=== PATIENT | female | born 1990 | race Caucasian/White ===

== ENCOUNTER 2021-12-20 13:10 | Outpatient (CLI) | payer BC, SELFPAY ==
[2021-12-20 10:01] LABS: Chloride* 105 mmol/L (96-114)
[2021-12-20 10:02] LABS: Albumin* 3.9 g/dL (3.3-5.0); Sodium* 137 mmol/L (135-149)
[2021-12-20 10:03] LABS: Potassium* 4.5 mmol/L (3.6-5.1)
[2021-12-20 10:05] LABS: Alanine Aminotransferase* 24 U/L (4-35); Alkaline Phosphatase* 51 U/L (40-150); Aspartate Amino Transferase* 29 U/L (12-35); Bilirubin Total* 0.3 mg/dL (0.1-1.5); Blood Urea Nitrogen* 11 mg/dL (5-24); Carbon Dioxide* 25 mmol/L (20-32); Cholesterol* 153 mg/dL (90-199); Creatinine* 0.6 mg/dL (0.5-1.5); Estimated Glomerular Filt Rate 123 ml/min; Glucose* 94 mg/dL (60-115); Total Protein* 6.5 g/dL (6.0-8.3); Triglycerides* 135 mg/dL (40-149)
[2021-12-20 10:06] LABS: Calcium* 9.1 mg/dL (8.4-10.6); HDL Cholesterol* 49 mg/dL (>=50); LDL Cholesterol Calculated 77 mg/dL (<100)
[2021-12-20 10:19] LABS: Creatinine Urine 196.3 mg/dL
[2021-12-20 10:24] LABS: Microalbumin Creatinine Ratio 0 mg/g (0-30); Microalbumin Urine 1 mg/dL
[2021-12-20 11:35] LABS: Free T4 Free Thyroxine* 0.99 ng/dL (0.70-1.85)
== END 2021-12-20 13:11 | disposition home or self-care (01) ==
PROVIDERS: PCP Family Medicine; Visit Provider Family Medicine
DX: E03.9 Hypothyroidism, unspecified (principal); E66.9 Obesity, unspecified; G47.30 Sleep apnea, unspecified; R03.0 Elevated blood-pressure reading, without diagnosis of hypertension; R53.83 Other fatigue; Z13.6 Encounter for screening for cardiovascular disorders; Z13.1 Encounter for screening for diabetes mellitus
CPT/HCPCS: 80053; 80061; 82043; 82570; 84439; 84443

== ENCOUNTER 2022-03-29 18:10 | Outpatient (CLI) | payer BC, SELFPAY | END 2022-03-29 18:11 | disposition home or self-care (01) | PROVIDERS: PCP Family Medicine; Visit Provider Family Medicine | DX: R53.83 Other fatigue (principal) | CPT/HCPCS: 84443 ==

== ENCOUNTER 2022-10-30 14:47 | Outpatient (CLI) | payer BC, SELFPAY ==
--- NOTE | 2022-10-30 15:00 | CRLHL7_ITS ---
For Patients: As a result of the Century Cures Act, medical imaging exams and procedure reports are released immediately into your electronic medical record. You may view this report before your referring provider. If you have questions, please contact your health care provider. INDICATION: First trimester scan, establish dates. COMPARISON: None. TECHNIQUE: Real-time willett-scale imaging of the pelvis was performed. FINDINGS: Sonographic imaging demonstrates a single living intrauterine gestation. The embryo demonstrates a regular cardiac rate measuring 171 beats per minute. The embryo`s crown-rump length measurement of 2.4 cm corresponds to a gestational age of 9 weeks 1 day with a sonographic due date of 06/03/2023. There is a normal-appearing yolk sac. There are no gross abnormalities noted within the embryo at this early state of development. The gestational sac has a normal appearance. There is no evidence of a perigestational hemorrhage. The amount of fluid within the sac appears appropriate for gestational age. The cervix is closed. The myometrium appears normal. Corpus luteal right ovarian cyst. Left ovary not visualized. There are no suspicious fluid collections noted in the cul-de-sac. IMPRESSION: Normal first trimester OB ultrasound exam. Gestational age calculated at 9 weeks 1 day with a sonographic due date of 06/03/2023. Dictated by Kranthi Enrique MD @ 10/31/2022 1:21:01 PM (Electronically Signed)
== END 2022-10-30 14:48 | disposition home or self-care (01) ==
LOC: US 14:49
PROVIDERS: PCP Family Medicine; Visit Provider Physician Assistant
DX: Z34.91 Encounter for supervision of normal pregnancy, unspecified, first trimester (principal); Z3A.09 9 weeks gestation of pregnancy
CPT/HCPCS: 76817; 84443; 86703; 86803; 86850; 86900; 86901; 87086; 87340; 87491; 87591

== ENCOUNTER 2022-10-30 15:55 | Outpatient (CLI) | payer BC, SELFPAY ==
[2022-10-30 21:59] LABS: Chlamydia DNA Amplified* NOT DETECTED (No Detected); GC DNA Amplified* NOT DETECTED (No Detected)
== END 2022-10-30 15:56 | disposition home or self-care (01) ==
PROVIDERS: PCP Family Medicine; Visit Provider Physician Assistant
DX: Z34.90 Encounter for supervision of normal pregnancy, unspecified, unspecified trimester (principal)
CPT/HCPCS: 84443; 86592; 86703; 86762; 86787; 86803; 86850; 86900; 86901; 87086; 87340; 87491; 87591

== ENCOUNTER 2022-11-27 09:32 | Outpatient (CLI) | payer BC, SELFPAY | END 2022-11-27 09:33 | disposition home or self-care (01) | PROVIDERS: PCP Family Medicine; Visit Provider Obstetrics & Gynecology | DX: Z34.91 Encounter for supervision of normal pregnancy, unspecified, first trimester (principal); Z3A.13 13 weeks gestation of pregnancy | CPT/HCPCS: 82565; 82570; 84156; 84443; 84450; 84460; 84520 ==

== ENCOUNTER 2022-12-26 14:21 | Outpatient (CLI) | payer BC, SELFPAY | END 2022-12-26 14:22 | disposition home or self-care (01) | LOC: NFLDREF 12-28 06:49 | PROVIDERS: PCP Family Medicine; Referring Provider Family Medicine; Visit Provider Obstetrics & Gynecology | DX: O10.912 Unspecified pre-existing hypertension complicating pregnancy, second trimester (principal); G47.30 Sleep apnea, unspecified; Z3A.17 17 weeks gestation of pregnancy | CPT/HCPCS: 84450; 84460 ==

== ENCOUNTER 2023-03-05 12:31 | Outpatient (CLI) | payer BC, SELFPAY | END 2023-03-05 12:32 | disposition home or self-care (01) | LOC: NFLDREF 03-06 07:52 | PROVIDERS: PCP Family Medicine; Referring Provider Family Medicine; Visit Provider Obstetrics & Gynecology | DX: Z34.92 Encounter for supervision of normal pregnancy, unspecified, second trimester (principal); E03.9 Hypothyroidism, unspecified; Z3A.27 27 weeks gestation of pregnancy | CPT/HCPCS: 84443; 86592 ==

== ENCOUNTER 2023-03-28 07:11 | Outpatient (CLI) | payer BC, SELFPAY ==
--- NOTE | 2023-03-28 07:15 | CRLHL7_ITS ---
For Patients: As a result of the Century Cures Act, medical imaging exams and procedure reports are released immediately into your electronic medical record. You may view this report before your referring provider. If you have questions, please contact your health care provider. INDICATION: Chronic hypertension TECHNIQUE: Limited transabdominal two-dimensional willett-scale ultrasound examination. COMPARISON: 02/19/2023 and 01/21/2023 FINDINGS: There is a living fetus with gestational age of 30 weeks 2 days by LMP and 33 weeks 1 day by today`s measurements. EDC based on LMP is 06/04/2023. BPD: 8.3 cm, 33 weeks 4 days Head circumference: 31.0 cm, 34 weeks 4 days Abdominal circumference: 28.5 cm, 32 weeks 4 days Femur length: 6.1 cm, 31 weeks 5 days The weight is estimated at 2009 grams, greater than the 97th percentile. The heart rate is measured at 152 beats per minute and the rhythm appears regular. The amniotic fluid volume is within normal limits with single deepest pocket of 7.1 cm. The placenta is anterior and superior to the cervical os. There is no evidence of previa. IMPRESSION: 1. Living fetus with gestational age of 30 weeks 2 days by LMP and 33 weeks 1 day by today`s measurements. EDC based on LMP is 06/04/2023. 2. weight estimated at 2009 grams, greater than the 97th percentile. Dictated by Ernie Anderson MD @ 03/29/2023 7:27:06 AM (Electronically Signed)
== END 2023-03-28 07:12 | disposition home or self-care (01) ==
LOC: US 07:12
PROVIDERS: PCP Family Medicine; Visit Provider Obstetrics & Gynecology
DX: O10.913 Unspecified pre-existing hypertension complicating pregnancy, third trimester (principal); Z3A.33 33 weeks gestation of pregnancy
CPT/HCPCS: 76816

== ENCOUNTER 2023-04-11 08:02 | Outpatient (CLI) | payer BC, SELFPAY ==
--- NOTE | 2023-04-11 08:15 | CRLHL7_ITS ---
For Patients: As a result of the Century Cures Act, medical imaging exams and procedure reports are released immediately into your electronic medical record. You may view this report before your referring provider. If you have questions, please contact your health care provider. INDICATION: Chronic HTN COMPARISON: 03/28/2023 TECHNIQUE: Real time willett scale imaging of the fetus was performed. Without non-stress testing. FINDINGS: Sonographic imaging demonstrates a single living intrauterine gestation. Fetus demonstrates a regular cardiac rate of 149 beats per minute. Fetus has a vertex position. The amniotic fluid volume appears normal and there is a single deepest pocket measurement of 7.3 cm. The fetus was active and demonstrated normal breathing movements. There was normal flexion and extension of the trunk and extremities. IMPRESSION: Normal biophysical profile score of 8 out of 8. Dictated by Kranthi Enrique MD @ 04/11/2023 9:26:53 AM (Electronically Signed)
== END 2023-04-11 08:03 | disposition home or self-care (01) ==
LOC: US 08:03
PROVIDERS: PCP Family Medicine; Visit Provider Obstetrics & Gynecology
DX: O10.919 Unspecified pre-existing hypertension complicating pregnancy, unspecified trimester (principal)
CPT/HCPCS: 76819; 84443

== ENCOUNTER 2023-04-18 12:50 | Outpatient (CLI) | payer BC, SELFPAY ==
--- NOTE | 2023-04-18 13:00 | CRLHL7_ITS ---
For Patients: As a result of the Century Cures Act, medical imaging exams and procedure reports are released immediately into your electronic medical record. You may view this report before your referring provider. If you have questions, please contact your health care provider. INDICATION: Chronic HTN COMPARISON: 04/11/2023 TECHNIQUE: Real time willett scale imaging of the fetus was performed. Without non-stress testing. FINDINGS: Sonographic imaging demonstrates a single living intrauterine gestation. Fetus demonstrates a regular cardiac rate of 126 beats per minute. Fetus has a vertex position. The amniotic fluid volume appears normal and there is a single deepest pocket measurement of 9.2 cm. NANDA 20.9 cm. The fetus was active and demonstrated normal breathing movements. There was normal flexion and extension of the trunk and extremities. IMPRESSION: Normal biophysical profile score of 8 out of 8. Dictated by Kranthi Enrique MD @ 04/18/2023 3:10:58 PM (Electronically Signed)
== END 2023-04-18 12:51 | disposition home or self-care (01) ==
LOC: US 12:50
PROVIDERS: PCP Family Medicine; Visit Provider Obstetrics & Gynecology
DX: O10.919 Unspecified pre-existing hypertension complicating pregnancy, unspecified trimester (principal)
CPT/HCPCS: 76819

== ENCOUNTER 2023-04-25 12:50 | Outpatient (CLI) | payer BC, SELFPAY ==
--- NOTE | 2023-04-25 13:00 | CRLHL7_ITS ---
For Patients: As a result of the Century Cures Act, medical imaging exams and procedure reports are released immediately into your electronic medical record. You may view this report before your referring provider. If you have questions, please contact your health care provider. INDICATION: Hypertension COMPARISON: 04/18/2023 TECHNIQUE: Real time willett scale imaging of the fetus was performed. Without non-stress testing. FINDINGS: Sonographic imaging demonstrates a single living intrauterine gestation. Fetus demonstrates a regular cardiac rate of 135 beats per minute. Fetus has a vertex position. The amniotic fluid volume appears normal and there is a single deepest pocket measurement of 6.8 cm. The fetus was active and demonstrated normal breathing movements. There was normal flexion and extension of the trunk and extremities. IMPRESSION: Normal biophysical profile score of 8 out of 8. Dictated by Kranthi Enrique MD @ 04/25/2023 1:52:42 PM (Electronically Signed)
== END 2023-04-25 12:51 | disposition home or self-care (01) ==
LOC: US 12:50
PROVIDERS: PCP Family Medicine; Visit Provider Obstetrics & Gynecology
DX: O10.919 Unspecified pre-existing hypertension complicating pregnancy, unspecified trimester (principal)
CPT/HCPCS: 76819; 82565; 82570; 84156; 84450; 84460; 84520

== ENCOUNTER 2023-05-02 12:50 | Outpatient (CLI) | payer BC, SELFPAY ==
--- NOTE | 2023-05-02 13:00 | US_ITS ---
Patient: KAYE JARRETT Facility:?[facility] Patient ID:?[id number] :?1990 Study:?US-OB Pelvis -05/02/2023 1:34:24 PM Ordering Physician:?Aparna Gonzales Final Report: INDICATION: Chronic hypertension TECHNIQUE: Real time willett scale imaging of the fetus was performed. COMPARISON: 04/25/2023 FINDINGS: Sonographic imaging demonstrates a single living intrauterine gestation. Fetus demonstrates a regular cardiac rate of 141 beats per minute. Fetus has a vertex position. The placenta lies anteriorly. Amniotic fluid volume appears normal and there is a single deepest pocket of 4.4 cm. The estimated weight is 3220gm which lies at the 95th %. On the prior OB ultrasound dated 03/28/2023 the estimated weight was at the greater than 97th percentile. BPD greater than 97th percentile. HC 94th percentile. AC 97th percentile. FL 78th percentile. The fetus was active and demonstrated normal breathing movements. There was normal flexion and extension of the trunk and extremities. IMPRESSION: Normal biophysical profile score 8/8. Sonographic gestational age 37 weeks 5 days and sonographic due date 05/18/2023. Sonographic ages 17 days ahead of the clinical age. Estimated weight 95th percentile. Abdominal circumference 97th percentile. Dictated by Kranthi Enrique MD @ 05/02/2023 1:39:20 PM Signed by:?Kranthi Enrique MD @05/02/2023 1:39:20 PM (Electronic Signature)
== END 2023-05-02 12:51 | disposition home or self-care (01) ==
LOC: US 12:50
PROVIDERS: PCP Family Medicine; Visit Provider Obstetrics & Gynecology
DX: O10.913 Unspecified pre-existing hypertension complicating pregnancy, third trimester (principal); Z3A.37 37 weeks gestation of pregnancy
CPT/HCPCS: 76816; 76819

== ENCOUNTER 2023-05-08 12:58 | Outpatient (CLI) | payer BC, SELFPAY ==
[2023-05-08] VITALS (11 sets, daily range): BP systolic 118–125; BP diastolic 57–66; PULSE 72–85; O2SAT 96–98
[2023-05-08 13:26] LABS: Hematocrit 34.6 % (33.0-51.0); Hemoglobin* 11.6 gm/dL (12.0-16.0); Mean Corpuscular HGB Conc 34 gm/dL (32-36); Mean Corpuscular Hemoglobin 29 pg (26-34); Mean Corpuscular Volume 86 fL (80-100); Platelet Count* 223 K/uL (140-440); Red Blood Count 4.04 m/uL (4.00-5.20); White Blood Count* 7.54 K/uL (4.50-11.00)
[2023-05-08 13:33] LABS: Slide Review Reflex No
[2023-05-08 13:52] LABS: Total Protein Urine < 5 mg/dL
[2023-05-08 14:10] LABS: Creatinine* 0.4 mg/dL (0.5-1.5); Estimated Glomerular Filt Rate 135 ml/min
[2023-05-08 14:11] LABS: Alanine Aminotransferase* 13 U/L (4-35); Aspartate Amino Transferase* 22 U/L (12-35); Blood Urea Nitrogen* 8 mg/dL (5-24)
[2023-05-08] MEDS: hydrOXYzine pamoate 25 MG CAPSULE 50 MG PO (15:24)
--- NOTE | 2023-05-08 15:42 | PC.OBNST ---
NST Note NST Note Start: 05/08/23 12:58 Freq: ONCE Status: Active Protocol: Document 05/08/23 15:39 [facility] (Rec: 05/08/23 15:41 [facility] [id number]) NST Note 1 Para (# of births) 0 EDC 06/04/23 Gestational Age In Weeks & Days 36 Weeks & 1 Days High Risk Factors High Blood Pressure - Preexisting Patient Presented with Complaint(s) of Other Other Complaints Increased swelling in bilateral hands and bilateral lower extremities Reactive Yes Appropriate for Gestational Age Yes RN Rigoberto Durant RN Date 05/08/23 Reactive Yes Appropriate for Gestational Age Yes PRUDENCE Shine Date 05/08/23 OB NST charge Yes Complete NST Note via Write Note Yes The provider's electronic signature indicates the NST is reactive/appropriate for gestational age. *Note to provider: If an addendum is required, open the patient's chart and click on the note under the Nurse/Allied Health tab.
--- NOTE | 2023-05-19 15:32 | PC.OBNST ---
NST Note NST Note Start: 05/08/23 12:58 Freq: ONCE Status: Discharge Protocol: Document 05/08/23 15:39 [facility] (Rec: 05/08/23 15:41 [facility] [id number]) NST Note 1 Para (# of births) 0 EDC 06/04/23 Gestational Age In Weeks & Days 36 Weeks & 1 Days High Risk Factors High Blood Pressure - Preexisting Patient Presented with Complaint(s) of Other Other Complaints Increased swelling in bilateral hands and bilateral lower extremities Reactive Yes Appropriate for Gestational Age Yes RN Rigoberto Durant RN Date 05/08/23 Reactive Yes Appropriate for Gestational Age Yes PRUDENCE Shine Date 05/08/23 OB NST charge Yes Complete NST Note via Write Note Yes The provider's electronic signature indicates the NST is reactive/appropriate for gestational age. *Note to provider: If an addendum is required, open the patient's chart and click on the note under the Nurse/Allied Health tab.
== END 2023-05-08 15:30 | disposition home or self-care (01) ==
LOC: OB OUT 12:58 → OB 12:59
PROVIDERS: PCP Family Medicine; Visit Provider Obstetrics & Gynecology
DX: O10.913 Unspecified pre-existing hypertension complicating pregnancy, third trimester (principal); Z3A.36 36 weeks gestation of pregnancy
CPT/HCPCS: 36415; 59025; 82565; 82570; 84156; 84450; 84460; 84520; 85027; G0463; A9270

== ENCOUNTER 2023-05-10 10:11 | Outpatient (CLI) | payer BC, SELFPAY ==
--- NOTE | 2023-05-10 10:15 | US_ITS ---
Patient: KAYE JARRETT Facility:?[facility] R[facility] Patient ID:?[id number] Site Patient ID:?[id number]. Site :?1990 Study:?US-OB Pelvis -05/10/2023 10:40:10 AM Ordering Physician:MARCOS PARKER Final Report: INDICATION: PREEXISTING HTN COMPARISON: 05/02/2023 TECHNIQUE: Real time willett scale imaging of the fetus was performed. Without non-stress testing. FINDINGS: Sonographic imaging demonstrates a single living intrauterine gestation. Fetus demonstrates a regular cardiac rate of 154 beats per minute. Fetus has a vertex position. The amniotic fluid volume appears normal and there is a single deepest pocket measurement of 7.7 cm. The fetus was active and demonstrated normal breathing movements. There was normal flexion and extension of the trunk and extremities. IMPRESSION: Normal biophysical profile score of 8 out of 8. Dictated by Kranthi Enrique MD @ 05/10/2023 10:53:39 AM Signed by:?Kranthi Enrique MD @05/10/2023 10:53:39 AM (Electronic Signature)
== END 2023-05-10 10:12 | disposition home or self-care (01) ==
PROVIDERS: PCP Family Medicine; Visit Provider Obstetrics & Gynecology
DX: O10.913 Unspecified pre-existing hypertension complicating pregnancy, third trimester (principal); Z3A.36 36 weeks gestation of pregnancy
CPT/HCPCS: 76819; 87081; 87653

== ENCOUNTER 2023-05-20 14:47 | Inpatient (IN) | payer BC, SELFPAY ==
[2023-05-20 14:56] VITALS: BP 137/73; PULSE 82; RESP 16; TEMP 36.9
[2023-05-20 15:06] VITALS: BMI 40.8
[2023-05-20 20:01] VITALS: BP 140/69; PULSE 74
--- NOTE | 2023-05-20 20:31 | P.OBHP_ITS ---
OB - H&P: HPI Labor/Induction History of Present Illness Time Seen by Provider: 17:00 Date Seen: 05/20/23 Chief Complaint: The patient is a 32 year old 1 para 0 at 37.6 weeks gestation by LMP, who presents for induction of labor due to chronic hypertension and severe PUPPS. Her full history was dictated by Dr. Gonzales on 05/15/23. See for full details. No interval changes since she was last seen in clinic. Active movement. Denies Ctx, LOF, vaginal bleeding or abnormal vaginal discharge. Denies any persistent headache, vision changes, SOB, right upper quadrant/epigastric pain, or rapidly expanding edema. Chief complaint: IOL for Chronic HTN and severe PUPPS Narrative: Patricia Melissa is a 32 year old female Specific Issues/Plans Spouse: Avel. Baby: Julius Hoover H&P done 05/15/[address] Gonzales. 1. Obesity, BMI 34.6 * Hemoglobin A1c: 5.1%, passed 1 hour glucola * ASA 81 MG 2. Hypothyroidism, levothyroxine 75 mg * TSH 3.55 on 10/30/22, dose not changed * TSH 13 weeks: 2.290. * TSH second-trimester: 1.38 * TSH 3rd trimester: 1.990 3. Anxiety, currently doing well without medication 4. Chronic hypertension, dx at 1st OB visit. * 12/17/21: 163/85. 1st OB: 124/86 * Baseline preE labs: No proteinuria on Prot:cr, AST 37, ALT 36, otherwise normal labs * Repeat AST / ALT entirely normal 12/26/22 * Labetalol 100 mg BID beginning 12/26/22. * Level 2 US: EFW > 99%, AC 86%, normal fluid, normal visualized anatomy but unable to evaluate several structures. * F/u US with MFM 02/19/23: 25 weeks. EFW 95%, AC 93%, normal anatomy * Repeat growth scan Q 4 weeks beginning 30 weeks: Ordered. * 03/28/23 US: vtx, SDP: 7.1 cm. BPD > 97%, HC: > 97%, AC: 95%, FL 77%. EFW 2009 g, > 97%. * 05/02/23: Cephalic, SDP 4.4, EFW 3220 g = 95.2%, AC 96.7%, BPD 97%, HC 94%, FL 78.4% BPP 8/8. * BPP weekly beginning 32 weeks: Ordered. * 04/25/2023: BP 140/68, 143/92: Increased labetalol to 200mg BID. Preeclampsia labs: hgb 11.8, plts 236, AST 32, ALT 17, Creat 0.4, BUN 6, Urine P/C 0.00. * Delivery 37 - 39 6/7 weeks if HTN adequately controlled. 5. Sleep apnea, uses mouth guard 6. Covid positive: 02/06/23 7. Anxiety * Repeat IRLANDA and PHQ 9 at 33 weeks. PHQ9 -2/ IRLANDA -4 8. PUPPs diagnosed at 35 weeks. Prescription for triamcinolone ointment sent. Tdap: Declined. Influenza: Declined RSV: Declined. Meds Home Medications and Allergies Home Medications Medication Instructions Recorded Confirmed Type docosahexaenoic acid 200 mg 200 mg PO DAILY 10/30/22 05/20/23 History capsule ( DHA) aspirin 81 mg tablet,delayed 81 mg PO QDAY 12/26/22 05/20/23 History release (Adult Low Dose Aspirin) cetirizine 10 mg capsule (Zyrtec) 10 mg PO QDAY PRN 05/15/23 05/20/23 History Allergies Allergy/AdvReac Type Severity Reaction Status Date / Time No Known Drug Allergies Allergy Verified 05/15/23 09:31 OB - H&P: Exam Physical Exam: Vital signs: Temp Pulse Resp BP 98.4 F 74 16 140/69 H 05/20/23 14:56 05/20/23 20:01 05/20/23 14:56 05/20/23 20:01 Narrative: Physical exam: General: No acute distress Psych: Alert and oriented x3, full affect HEENT: Normocephalic, atraumatic Lungs: Unlabored breathing Neuro: No focal deficit. Mentating appropriately Abdomen: Gravid, soft, nontender. No rebound or guarding. Skin: Paps rash on bilateral upper and lower extremities, breasts, and abdomen. Excoriation wood throughout, most prominent on bilateral lower extremities. Scabs in various state of healing on her legs. Pelvic exam: /-3, posterior, moderately soft OB - Problem Based A/P Additional Plan (1) PUPP (pruritic urticarial papules and plaques of ): Status: Acute (2) Chronic hypertension in : Status: Acute Plan: - Labetalol 200 mg BID (3) Hypothyroidism: Status: Acute Plan: - On levothyroxine 75 mcg (4) Class 1 obesity: Status: Acute Plan - Will proceed with IOL - Cook cath placed at 1745. Cervical and vaginal balloon inflated to 60 mL. Patient tolerated the procedure well. - Will start pitocin at midnight
[2023-05-20 20:56] VITALS: BP 138/72; PULSE 75
[2023-05-20] MEDS: LABETALOL HCL 100 MG TABLET PO (21:00)
[2023-05-20 21:04] LABS: Basophils Absolute Auto 0.01 K/uL (0.00-0.30); Basophils Percent Auto 0.1 % (0.0-3.0); Eosinophils Absolute Auto 0.47 K/uL (0.00-0.50); Eosinophils Percent Auto 5.8 % (0.0-7.0); Hemoglobin* 11.4 gm/dL (12.0-16.0); Immature Granulocytes Abs Auto 0.03 K/uL (0.00-0.30); Immature Granulocytes Pct Auto 0.4 %; Lymphocytes Percent Auto 24.8 % (20-44); Mean Corpuscular HGB Conc 34 gm/dL (32-36); Mean Corpuscular Hemoglobin 28 pg (26-34); Mean Corpuscular Volume 84 fL (80-100); Monocytes Percent Auto 4.8 % (0.0-11.0); Neutrophils Absolute Auto 5.16 K/uL (1.7-7.0); Neutrophils Percent Auto 64.1 % (42.0-72.0); Platelet Count* 223 K/uL (140-440); RDW Coefficient of Variation % 13.6 % (11.5-15.5); Red Blood Count 4.04 m/uL (4.00-5.20); White Blood Count* 8.06 K/uL (4.50-11.00)
[2023-05-20 21:16] LABS: Slide Review Reflex No
[2023-05-21] VITALS (57 sets, daily range): BP systolic 108–167; BP diastolic 54–104; PULSE 57–125; RESP 16; TEMP 36.3–37.3; O2SAT 92–100
[2023-05-21] MEDS: LACTATED RINGERS 1000 ML 1,000 ML 125 ML IV ×3 (00:16→10:30)
[2023-05-21] MEDS: OXYTOCIN 30 unit/500 ML in NS 30 UNIT/500 ML BAG IVPB (00:16)
[2023-05-21] MEDS: LABETALOL HCL 100 MG TABLET 200 MG PO ×2 (07:25→21:06)
[2023-05-21] MEDS: LEVOTHYROXINE 75 MCG TABLET PO (07:30)
--- NOTE | 2023-05-21 08:10 | PM.OBPNL ---
Subjective Date Seen: 05/21/23 Narrative: Okay Objective Vital Signs: Last Vital Signs Temp 97.7 F 05/21/23 04:30 Pulse 74 05/21/23 07:20 Resp 16 05/20/23 14:56 BP 131/74 05/21/23 07:20 Pelvic Exam Dilation (cm): 6-7 Effacement (%): 90 Station: -1 Contractions Monitor mode: External Contraction pattern: Regular Contraction intensity: Mild Assessment Assessment: induction ongoing Station: -1 Amniotic Membrane Status: AROM (Clear) Status: Category ll (Patient has been on the mobile monitoring unit and heart rate monitoring has been difficult to assess, seems like she has had episodes of variable decelerations, a scalp electrode has been placed now, will keep close monitoring.) Heart Rate Baseline: 140 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 IOL ongoing: s/p AROM,continue Oxytocin titration. Close monitoring of FHR. 2. 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 Continue labetalol dosing. 3. Expect a vaginal delivery.
[2023-05-21] MEDS: LIDOCAINE 2% (PF) 5 ML VIAL EPIDURAL (10:15)
[2023-05-21] MEDS: ROPIVACAINE 0.2% 100 ml 100 ML 12 MG EPIDURAL (10:15)
[2023-05-21] MEDS: fentaNYL 100 MCG/2 ML inj EPIDURAL (10:26)
--- NOTE | 2023-05-21 10:36 | P.ANBPRC_ITS ---
[facility] Medical History History of iron deficiency anemia ?Z86.2 - Personal history of diseases of the blood and blood-forming organs and certain disorders involving the immune mechanism (ICD-10) Surgical History History of tympanostomy ?Z98.890 - Other specified postprocedural states (ICD-10) History of tonsillectomy and adenoidectomy (2017) ?Z90.89 - Acquired absence of other organs (ICD-10) History of nasal septoplasty (2017) ?Z98.890 - Other specified postprocedural states (ICD-10) Family History Mother Breast cancer Paternal Grandfather Stroke Coronary artery disease Maternal Grandmother Depression Diabetes Maternal Grandfather Coronary artery disease Father FH: prostate cancer Family/Other Thyroid disease Sjogren's disease Social History Narrative: exercises 5-6 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, , 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, 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, non smoker, social drinker 1/ week What is your current living situation?: I presently have a place to live Problems where you live: no known problems In the past 12 months, utilities in danger of being shut off: no In past 12 months, lack of transportation kept you from medical appts, meetings, work, or getting things needed for daily living: no In the past 12 mos, have been you worried that your food would run out before you had money to buy more?: never true In the past 12 mos, the food you bought just didn't last and you didn't have money to buy more?: never true Smoking Status: Never smoker How often does anyone, including family, friends and others, physically hurt you : never How often does anyone, including family, friends and others, insult or talk down to you: never How often does anyone, including family, friends and others, threaten you with harm: never How often does anyone, including family, friends and others, scream or curse at you: never Little interest or pleasure in doing things: not at all Feeling down, depressed, or hopeless: not at all Meds Home Medications and Allergies Home Medications Medication Instructions Recorded Confirmed Type docosahexaenoic acid 200 mg 200 mg PO DAILY 10/30/22 05/20/23 History capsule ( DHA) aspirin 81 mg tablet,delayed 81 mg PO QDAY 12/26/22 05/20/23 History release (Adult Low Dose Aspirin) cetirizine 10 mg capsule (Zyrtec) 10 mg PO QDAY PRN 05/15/23 05/20/23 History Allergies Allergy/AdvReac Type Severity Reaction Status Date / Time No Known Drug Allergies Allergy Verified 05/15/23 09:31 Results Labs Labs: Laboratory Results - last 24 hr 05/20/23 20:55 WBC 8.06 RBC 4.04 Hgb 11.4 L Hct 34.0 MCV 84 MCH 28 MCHC 34 RDW Coeff of Pavan 13.6 Plt Count 223 Neut % (Auto) 64.1 Lymph % (Auto) 24.8 Adams % (Auto) 4.8 Eos % (Auto) 5.8 Baso % (Auto) 0.1 Neut # (Auto) 5.16 Lymph # (Auto) 2.00 Adams # (Auto) 0.40 Eos # (Auto) 0.47 Baso # (Auto) 0.01 Abs Immat Gran (auto) 0.03 Imm/Tot Granulo (auto) 0.4 Blood Type A Positive Antibody Screen NEGATIVE Vital Signs Vital Signs: Last Vital Signs Temp 97.7 F 05/21/23 04:30 Pulse 64 05/21/23 10:33 Resp 16 05/20/23 14:56 BP 138/67 05/21/23 10:33 Pulse Ox 99 05/21/23 10:33 Weight: 125.277 kg Height: 175.26 cm Anesthesia Procedures Epidural Insertion Patient Location: OB Start Time: 09:45 Stop Time: 10:15 Start Date: 05/21/23 Stop Date: 05/21/23 Reason for Block: procedure for pain Patient Position: sitting Performed By: Ousmane Gil Preanesthetic Checklist: IV checked, risks and benefits discussed, monitors and equipment checked, pre-op evaluation, timeout performed and anesthesia consent Prep: chlorhexidine gluconate Monitoring: blood pressure monitoring, continuous pulse oximetry and heart rate Approach: midline Vertebral Space: lumbar (1-5) Epidural Technique: LUIS MIGUEL saline Needle Type: Tuohy needle Injection Technique: continuous catheter Needle gauge: 17 Needle Length (cm): 10 cm Needle Insertion Depth (cm): 11 Catheter Gauge: 19 Catheter Type: multi-orifice Catheter at skin depth (cm): 18 Test Dose Result: negative and lidocaine 1.5% with epinephrine 1 to 200,000
--- NOTE | 2023-05-21 10:53 | P.OBPN_ITS ---
Subjective Time Seen by Provider: 10:53 Date Seen: 05/21/23 Narrative: Better after epidural Objective Vital Signs: Last Vital Signs Temp 97.8 F 05/21/23 10:43 Pulse 65 05/21/23 10:51 Resp 16 05/21/23 10:43 BP 130/62 05/21/23 10:51 Pulse Ox 97 05/21/23 10:48 Pelvic Exam Dilation (cm): 9 Effacement (%): 90 Station: 0 Contractions Monitor mode: External Contraction pattern: Regular Contraction intensity: Mild Pitocin Rate (mU/min): 8 Assessment Assessment: induction ongoing Station: 0 Amniotic Membrane Status: AROM (Clear) Status: Category ll (Patient has been on the mobile monitoring unit and heart rate monitoring has been difficult to assess, seems like she has had episodes of variable decelerations, a scalp electrode has been placed now, will keep close monitoring.) Heart Rate Baseline: 140 Group Home Variability: Moderate (6-25) Monitor Accelerations: Present Monitor Decelerations: Early Plan Plan: Epidural in place and patient feeling much better. She is 9cm. NST with early decelerations, will continue position changes and re check in 1-2 hours to start pushing.
[2023-05-21] MEDS: miSOPROStoL 800 MCG/4 TABLET PR (12:32)
--- NOTE | 2023-05-21 15:22 | W.PM.OBVAGDE ---
OB Procedure Vag Delivery Mother Details Mother Details: The patient is a 32 year-old, 1, Para 0, admitted on 05/20/23 at 37 6/7 Days gestation. Patient admitted due to CHTN treated with oral medications and PUPPs. : 1 Para: 1 Weeks Gestation: 38 Admission Date: 05/20/23 Additional Details Amniotic Membrane Status: AROM Amniotic Membrane Rupture Date: 05/21/23 Amniotic Membrane Rupture Time: 07:57 Amniotic Membrane Fluid Description: Clear Analgesia/Anesthesia Type: Epidural Waterbirth: No Pitcoin: Yes Intrapartal Events: Labor Induction Induction Method: Intracervical balloon catheter, per pitocin protocol and AROM Labor Onset: 08:30 Complete: 11:17 Pushin:20 Heart: heart tones during second stage were category 2. Deep variable decelerations with contractions, continued descent noted with good pushing efforts and accelerations noted with scalp stimulation. Delivery Details Delivery Date: 05/21/23 Delivery Time: 12:23 Route of delivery: Infant Gender: Male Viability: Alive; Heart Rate Present Position at Delivery: OA Delivery Details: noted with 3 contractions, great maternal effort with pushing, thick perineal band palpated that was massaged during contractions but did not release. Verbal consent obtained for episiotomy. In between contractions a very small bhavin was made medially mostly over thick vaginal ring and perineum of about 1cm. Pressure maintained in this area and with next pushing effort baby delivered. Delivered over medial episiotomy via spontaneous vaginal delivery. was placed on maternal abdomen.? Cord was clamped and cut after a 30-60 second delay. Nose and mouth were bulb suctioned.? weight pending. 1 Minute Interval Total Score: 8 5 Minute Interval Total Score: 9 Additional Details Shoulder Dystocia: No Placenta Delivery Time: 12:29 Placental Delivery Description: Spontaneous Delivery repair: Vicryl (Episiotomy/2nd degree w/o extension. A right vaginal laceration also noted at around 10 o clock also repaired. ) Procedure Done: Global Blood Loss: 577 Laceration: Perineal - 2nd Degree Episiotomy Description: Midline Blood Loss Measurement Type: QBL (Bleeding from lacerations and episodes of uterine atony, managed with IV Oxytocin and 800mcg of rectal cytotec.) Bakri Used: No Sponge/Need Count Correct: Yes Cord Vessel Description: 3 Vessels, Nuchal Cord and Delivered through Event Summary Status: Mother and infant were stable after delivery. Disposition: floor
[2023-05-21] MEDS: ACETAMINOPHEN 500 MG TABLET 1000 MG PO (19:57)
[2023-05-21] MEDS: IBUPROFEN 600 MG TABLET PO (23:44)
[2023-05-22 02:55] VITALS: BP 116/76; PULSE 78; RESP 16; TEMP 36.7; O2SAT 98
[2023-05-22] MEDS: IBUPROFEN 600 MG TABLET PO ×3 (06:15→20:04)
[2023-05-22] MEDS: LEVOTHYROXINE 75 MCG TABLET PO (06:21)
[2023-05-22 06:30] LABS: Basophils Percent Auto 0.3 % (0.0-3.0); Eosinophils Percent Auto 3.3 % (0.0-7.0); Hematocrit 29.5 % (33.0-51.0); Hemoglobin* 9.7 gm/dL (12.0-16.0); Immature Granulocytes Pct Auto 0.3 %; Lymphocytes Percent Auto 23.1 % (20-44); Mean Corpuscular HGB Conc 33 gm/dL (32-36); Mean Corpuscular Hemoglobin 28 pg (26-34); Mean Corpuscular Volume 86 fL (80-100); Platelet Count* 188 K/uL (140-440); RDW Coefficient of Variation % 13.9 % (11.5-15.5); Red Blood Count 3.44 m/uL (4.00-5.20); White Blood Count* 11.41 K/uL (4.50-11.00)
[2023-05-22 07:05] LABS: Alanine Aminotransferase* 14 U/L (4-35); Aspartate Amino Transferase* 27 U/L (12-35); Blood Urea Nitrogen* 9 mg/dL (5-24); Creatinine* 0.5 mg/dL (0.5-1.5); Est. Creatinine Clearance* 168.81; Estimated Glomerular Filt Rate 128 ml/min
[2023-05-22 07:29] LABS: Slide Review Reflex No
[2023-05-22 08:10] VITALS: BP 125/85; PULSE 77; RESP 16; TEMP 36.8; O2SAT 97
[2023-05-22] MEDS: LABETALOL HCL 100 MG TABLET 200 MG PO (08:33)
--- NOTE | 2023-05-22 10:44 | P.OBPN_ITS ---
OB - PN:Subj Subjective Date Seen: 05/22/23 Patient comments OB post-: no complaints, pain well controlled, tolerating diet and flatus present [place] status: and doing well [place] feeding status: exclusively Narrative: The patient feels well.? The pain is well controlled with current medications.? She has no new complaints.? Urinary output is adequate and she is voiding w ithout difficulty.? Has a good appetite, is tolerating a general diet, is passing flatus, and has had a bowel movement.? Has scant amount of rubra lochia.? She is ambulating well.?She is and feels that is going well but working on a deeper latch. OB - PN: Obj Exam Physical Exam: Vital signs: Temp Pulse Resp BP Pulse Ox O2 Del Method 98.2 F 77 16 125/85 97 Room Air 05/22/23 08:10 05/22/23 08:10 05/22/23 08:10 05/22/23 08:10 05/22/23 08:10 05/22/23 08:10 Narrative: GENERAL APPEARANCE:? normal affect, alert, no distress? MOOD:? appropriate? CHEST:? clear to auscultation and percussion? HEART:? regular rate and rhythm? ABDOMEN:? soft, non-tender the uterine fundus is U/2 and is appropriate for the stage of recovery.? PERINEUM:? mild edema of the perineum, there is a 2nd degree that is healing well.? EXTREMITIES:? normal and no edema? OB - PN: Obj Data Labs Labs: Laboratory Results - last 24 hr 05/22/23 06:10 WBC 11.41 H RBC 3.44 L Hgb 9.7 L Hct 29.5 L MCV 86 MCH 28 MCHC 33 RDW Coeff of [place] 13.9 Plt Count 188 Neut % (Auto) 67.0 Lymph % (Auto) 23.1 [place] % (Auto) 6.0 Eos % (Auto) 3.3 Baso % (Auto) 0.3 Neut # (Auto) 7.60 H Lymph # (Auto) 2.60 [place] # (Auto) 0.70 Eos # (Auto) 0.40 Baso # (Auto) 0.00 Abs Immat Gran (auto) 0.00 Imm/Tot Granulo (auto) 0.3 BUN 9 Creatinine 0.5 Estimated Creat Clear 168.81 Estimated GFR 128 AST 27 ALT 14 OB - PN: A/P Delivery Assessment and Plan (1) PUPP (pruritic urticarial papules and plaques of ): Status: Acute (2) Chronic hypertension in : Status: Acute (3) Hypothyroidism: Status: Acute (4) Class 1 obesity: Status: Acute (5) Lactating mother: Status: Acute (6) care following vaginal delivery: Status: Acute Plan day: 1 Plan: routine care Comments: Anticipate discharge home tomorrow.
[2023-05-22 12:39] VITALS: BP 120/76; PULSE 78; RESP 16; TEMP 37.1; O2SAT 96
--- NOTE | 2023-05-22 12:46 | PM.ANPOST ---
Post Anesthesia Note Post Anesthesia Note Patient seen: Inpatient Respiratory Status: adequate Cardiovascular Status: adequate Mental Status: baseline Pain: adequate Temp: baseline Anesthetic awareness: N/A Complications: none Follow care: none
[2023-05-22] MEDS: FERROUS SULFATE 325 MG TABLET PO (12:50)
[2023-05-22] MEDS: DOCUSATE SODIUM 100 MG CAPSULE PO (12:50)
[2023-05-22 16:33] VITALS: BP 120/77; PULSE 84; RESP 16; TEMP 36.9; O2SAT 96
[2023-05-22 19:54] VITALS: BP 122/81; PULSE 84; RESP 16
[2023-05-22 23:10] LABS: Rapid Plasma Reagin (RPR) Non Reactive (Non Reactive)
[2023-05-22 23:41] VITALS: BP 129/76; PULSE 84; RESP 16; TEMP 36.8
[2023-05-23 05:14] VITALS: BP 136/87; PULSE 84; RESP 16; TEMP 36.8
[2023-05-23] MEDS: LABETALOL HCL 100 MG TABLET 200 MG PO (05:21)
[2023-05-23] MEDS: IBUPROFEN 600 MG TABLET PO (05:21)
[2023-05-23] MEDS: LEVOTHYROXINE 75 MCG TABLET PO (07:42)
[2023-05-23] MEDS: DOCUSATE SODIUM 100 MG CAPSULE PO (07:42)
--- NOTE | 2023-05-23 09:50 | PM.OBDSVD1 ---
DS: Providers Provider Date Seen: 05/23/23 Date of admission: 05/20/23 14:47 Primary care physician: Nita Wilson DO Admitting Clinician: Michelle Boyer MD Attending Physician on discharge: Pj Matthews CNM Date of Discharge: 05/23/23 DS: Diagnosis Discharge Diagnosis (1) care following vaginal delivery: Status: Acute (2) Lactating mother: Status: Acute (3) Chronic hypertension in : Status: Acute Exam Narrative: Exam Narrative: GENERAL APPEARANCE:? normal affect, alert, no distress MOOD:? appropriate CHEST:? clear to auscultation HEART:? regular rate and rhythm ABDOMEN:? soft, non-tender the uterine fundus is firm1 cm below Umbilicus, Midline and is appropriate for the stage of recovery. PERINEUM:? mild edema of the perineum, there is a Perineal Laceration,? 2nd degree that is healing well. EXTREMITIES:? normal and trace edema Const: Vital Signs, click to edit/add: Vital Signs - 24 hr 05/22/23 12:39 05/22/23 16:33 05/22/23 19:54 Temperature 98.7 F 98.4 F Pulse Rate [Left P ulse Oximeter] 78 84 84 Respiratory Rate 16 16 16 Blood Pressure [Le ft Arm] 120/76 120/77 122/81 Pulse Oximetry 96 96 Oxygen Delivery Me thod Room Air Room Air Room Air 05/22/23 23:41 05/23/23 05:14 Temperature 98.2 F 98.2 F Pulse Rate [Left P ulse Oximeter] 84 84 Respiratory Rate 16 16 Blood Pressure [Le ft Arm] 129/76 136/87 Pulse Oximetry Oxygen Delivery Me thod Room Air Room Air OB - DS: Summary Hospital Course Hospital Course: Patricia is a 32 y.o. who was admitted to [facility] for induction of labor. ?She had an uncomplicated NVD.?The patient feels well. ?The pain is well controlled with current medications. ?She has no new complaints. ?She is breast feeding and reports things are going well.? the patient has done well.? Vitals have been stable.? She has remained afebrile.? Has a good appetite, is tolerating a general diet. ?She is voiding without difficulty.? She is passing gas and has not had a bowel movement.? She is ambulating and denies any dizziness.? Has Small amount of rubra lochia. ?She is undecided about what she plans for prevention. Peripartum Data Infant delivery method: Vaginal Laceration description: Perineal - 2nd Degree Episiotomy description: Right Mediolateral complications: none [place] Gender: Male Discharge Plan: Home Status at Discharge Functional status at discharge: independent ambulation Overall status at discharge: patient is progressing back to baseline Time Spent with Patient Time attestation: Total time spent providing and/or coordinating discharge services: Discharge Plan Discharge Disposition: Home, Self-Care Date of Admission: 05/20/23 14:47 Attending Provider on Discharge: Pj Matthews Primary Care Provider: Nita Wilson Condition: Stable Anticipated Discharge Date/Time: 05/23/23 12:00 Discharge Medications: New acetaminophen 500 mg Tablet 1,000 mg PO Q6H PRNQty: 0 0RF levothyroxine [Synthroid] 75 mcg Tablet 75 mcg PO DAILY@0700 Qty: 0 0RF ferrous sulfate 325 mg (65 mg iron) Tablet 325 mg PO Q48H Qty: 60 0RF docusate sodium 100 mg Capsule 100 mg PO DAILY Qty: 90 2RF ibuprofen 600 mg Tablet 600 mg PO Q6H PRNQty: 60 0RF labetalol 100 mg Tablet 200 mg PO BID Qty: 60 0RF Continued DHA 200 mg capsule 200 mg PO DAILY Zyrtec 10 mg capsule 10 mg PO QDAY PRN betamethasone dipropionate 0.05 % cream 1 applic topical BID PRN (Reason: rash) Qty: 45 0RF levothyroxine 75 mcg tablet 75 mcg PO DAILY Qty: 90 1RF hydroxyzine pamoate [Vistaril] 25 mg capsule 50 - 75 mg PO QHS Qty: 30 0RF Discontinued aspirin [Adult Low Dose Aspirin] 81 mg tablet,delayed release (DR/EC) 81 mg PO QDAY labetalol 100 mg tablet 100 mg PO BID Qty: 180 0RF Discharge Orders: Discharge Order (Routine); Ordered 05/23/23 Ordered By: Pj Matthews Patient Education: OB Over the Counter Medication Information, OB Vaginal/Breast Feeding Activity Level: Activity as Tolerated Discharge Diet: Regular Follow Up Appointments: Nita Wilson DO [Primary Care Provider] - [facility] [Provider Group] Forms: MyHealth Info Instructions
== END 2023-05-23 14:58 | disposition home or self-care (01) | DRG 560 ==
PROVIDERS: Obstetrics & Gynecology; Admitting Provider Obstetrics & Gynecology; PCP Family Medicine; Visit Provider Obstetrics & Gynecology
DX: O16.4 Unspecified maternal hypertension, complicating childbirth (principal); O26.893 Other specified pregnancy related conditions, third trimester; L29.8 Other pruritus; O70.1 Second degree perineal laceration during delivery; O99.284 Endocrine, nutritional and metabolic diseases complicating childbirth; E03.9 Hypothyroidism, unspecified; O99.344 Other mental disorders complicating childbirth; F41.9 Anxiety disorder, unspecified; O99.214 Obesity complicating childbirth; E66.9 Obesity, unspecified; G47.30 Sleep apnea, unspecified; Z3A.37 37 weeks gestation of pregnancy; Z37.0 Single live birth
CPT/HCPCS: 01967; 36415; 59200; 82565; 84450; 84460; 84520; 85018; 85025; 86592; 86850; 86900; 86901; 88307; A9270; C1726; J2371; J2795; J3010; J7120

== ENCOUNTER 2023-06-07 10:44 | Outpatient (CLI) | payer BC, SELFPAY ==
--- NOTE | 2023-06-07 17:00 | P.LACCB_ITS ---
Consult Note - Mom Date of Visit Date of visit: 06/07/23 sr technical sales consultant: Amaya Ely Visit Code: Visit Patient's Information Phone number: [phone] : 1 Para: 1 Allergies No Known Drug Allergies Allergy (Verified 06/05/23 12:56) Mother's Medical History: Medical History (Updated 06/05/23 @ 15:46 by Arabella Ogden CNP) PUPP (pruritic urticarial papules and plaques of ) hypothyroidism CHTN Work Plans: Returns to work in September Delivery Information Delivery type: Vaginal Weeks Gestation: 38.0 Gestational Age: LGA Weight: 4.02 kg Discharge Weight: 3.802 kg Baby's Information Baby's Age at Visit: 17 days Baby's Provider or Clinic: Dr. Aviles Jaundice: No Reason for Consult Reason for Consult: pain with latching Past Experience Past Experience: No Current Frequency of Day Feedings: every 2 - 3 hours Frequency of Night Feedings: every 3 - 3.5 hours Both Breasts: Yes Suck: strong Latch: somewhat narrow Length of Time: 10 - 15 minutes/side Pumping Pumping: Yes (with every feeding) Quantity Pumped: 4 oz total each time Supplementing EMB Supplement: Yes (baby is bottle fed for most feedings) Formula Supplement: No Baby Elimination Number of Wet Diapers a Day: 24 hours Number of BM a Day: 8/24 hours, yellow and seedy Breast/Nipple Condition Breast Information: WNL Onsite Pre-Feed weight: 4.392 kg Post-Feed weight: 4.476 kg Milk Transferred (mL): 84 Assessments/Interventions Assessments/Interventions: Met with mom and this now 17 day old ex- term LGA baby for consult. Mom reports has become quite painful- baby won't open his mouth very wide, keeps his tongue to the roof of his mouth, and often has a lot of clicking while nursing. It's become so uncomfortable to nurse that for the past several days she's only breastfed about twice/day, then pumped and offered EBM for the other feedings. Baby takes about 3 oz each feeding and sometimes has a lot of clicking with the bottle as well. Mom states the pump is more comfortable than nursing. She's measured herself but would like a second opinion. Breasts are large but WNL- symmetrical with rounded lower quadrants, intramammary distance is < 1.5 inches. Nipples are everted and don't flatten or retract on compression, they're longer than average. No damage noted. Baby has gained 53 grams/day since his circumcision visit on 06/03/23 and he's over 12 oz above BW. Per mom he prefers to turn his head to the left and he has a left occiput cephalohematoma that mom states developed after he was D/C'd from the hospital. POC have mentioned it to PCP and per mom it hasn't changed in size. Baby's palate, upper frenulum, and lower frenulum are all WNL. He has a strong suck on a finger and the tongue consistently extends past the gumline. The tongue has good lateralization to the right but some canoeing when lateralizing to the left. Mom latched baby to the left side and although the latch was asymmetrical it was uncomfortable, mom stated it felt like he was pulling on just the nipple. No improvement when the chin was pulled down. Mom removed him and with verbal coaching to have him tummy to tummy, move his arm around her breast, really support her breast from underneath in the center, and exaggerate pointing nipple to nose she was able to get baby on a little further back on the breast and reported increased comfort. Baby nursed about 10 minutes before getting sleepy and coming off the breast. Mom roused him and offered that side again, getting a more comfortable latch using the ideas mentioned. Baby nursed another 10 minutes before coming off again. Mom roused him, offered the right side, and was able to get him on comfortably on the second attempt. Baby nursed another 10 minutes. When weighed he transferred 84 ml. Mom was measured and a flange size was suggested, handout given. Mom reports she's interested in , but doesn't want to exclusively breastfeed, she'd like to have other people help with feedings. She would like to only offer EBM however. Plan: 1. Suggested that for the next two weeks, mom really focus on so they both feel more comfortable with it. Use the ideas above to get as deep a latch as possible and offer both sides at each feeding. 2. For these next two weeks hand express/[place]/pump to comfort if needed after feeding. Once she re-introduces the bottle, suggested she pump to empty for the bottle fed feedings. 3. No medical need to supplement. 4. Showed mom an exercise POC can try that should help baby to open wider and lower his tongue. No clicking was heard at this feeding. Also reviewed a few things POC can do to help with ROM in baby's neck. 5. Mom declined a one month pre/post feeding weight in but is interest ed in attending Baby Talk. Meds Home Medications and Allergies Home Medications Medication Instructions Recorded Confirmed Type docosahexaenoic acid 200 mg 200 mg PO DAILY 10/30/22 06/05/23 History capsule ( DHA) cetirizine 10 mg capsule (Zyrtec) 10 mg PO QDAY PRN 05/15/23 06/05/23 History Allergies Allergy/AdvReac Type Severity Reaction Status Date / Time No Known Drug Allergies Allergy Verified 06/05/23 12:56
== END 2023-06-07 10:45 | disposition home or self-care (01) ==
LOC: OB LAC 10:44
PROVIDERS: PCP Obstetrics & Gynecology; Visit Provider Obstetrics & Gynecology
DX: Z39.1 Encounter for care and examination of lactating mother (principal)
CPT/HCPCS: G0463

== ENCOUNTER 2023-07-02 14:16 | Outpatient (CLI) | payer BC, SELFPAY | END 2023-07-02 14:17 | disposition home or self-care (01) | LOC: NFLDREF 14:19 | PROVIDERS: PCP Obstetrics & Gynecology; Visit Provider Obstetrics & Gynecology | DX: E03.9 Hypothyroidism, unspecified (principal) | CPT/HCPCS: 84443 ==

== ENCOUNTER 2023-09-17 09:30 | Outpatient (RCR) | payer BC, SELFPAY | END 2024-01-15 23:59 | disposition home or self-care (01) | PROVIDERS: PCP Family Medicine; Visit Provider Obstetrics & Gynecology | DX: M53.3 Sacrococcygeal disorders, not elsewhere classified (principal); Z39.2 Encounter for routine postpartum follow-up; R35.0 Frequency of micturition; K59.00 Constipation, unspecified; M54.9 Dorsalgia, unspecified; L90.5 Scar conditions and fibrosis of skin; N94.10 Unspecified dyspareunia; R10.2 Pelvic and perineal pain; R27.8 Other lack of coordination; R53.1 Weakness; Z51.89 Encounter for other specified aftercare | CPT/HCPCS: 76819; 97110; 97140; 97162; 97535 ==

== ENCOUNTER 2025-02-13 14:11 | Outpatient (CLI) | payer OTHER, SELFPAY | END 2025-02-13 14:12 | disposition home or self-care (01) | LOC: NFLDUCREF 14:12 | DX: J02.9 Acute pharyngitis, unspecified (principal) | CPT/HCPCS: 87252 ==